=== PATIENT | male | born 1965 | race Caucasian/White ===

== ENCOUNTER → 2021-11-02 | Outpatient (CLI) | payer BC ==
--- NOTE | 2021-11-03 09:24 | XR ---
Left ankle HISTORY: Pain 3 views the left ankle There is spurring at the tibiotalar joint. No evident fracture or dislocation. Ossific densities pres ent distal to the medial malleolus which appears well-corticated and not felt likely to be acute. Sim ilarly, distal to the lateral malleolus well-corticated ossific densities are suspected. Some widenin g of the tibiotalar joint is present bilaterally. Only mild soft tissue swelling present. Questionabl e lucency seen along the ankle mortise laterally on the frontal view. IMPRESSION: Findings may be due to remote trauma with secondary osteoarthritis, difficult to exclude an osteochondral defect at the ankle mortise, ankle MRI may be of benefit.
== END | disposition home or self-care (01) ==
LOC: RADXRYALE 16:39
PROVIDERS: ATTEND Physician Assistant
DX: M25.572 Pain in left ankle and joints of left foot (principal)

== ENCOUNTER 2023-11-25 08:30 | Day surgery (SDC) | payer BC ==
[2023-11-25] MEDS ORDERED: PROPOFOL 10 MG/ML 20 ML VIAL IV ONE (10:24)
[2023-11-25] MEDS ORDERED: LACTATED RINGERS 1,000 ML BAG ONE (10:24)
[2023-11-25] MEDS ORDERED: LIDOCAINE 1% INJ 10MG/ML (20 ML MDV) ONE (10:24)
== END 2023-11-25 12:15 ==
LOC: OR 08:30
PROVIDERS: ATTEND Student in an Organized Health Care Education/Training Program
DX: I48.19 Other persistent atrial fibrillation (principal); R47.1 Dysarthria and anarthria; Z79.82 Long term (current) use of aspirin
CPT/HCPCS: 92960; J2001; J2704

== ENCOUNTER → 2024-01-25 | Outpatient (CLI) | payer BC ==
[2024-01-25 16:37] VITALS: BP 128/88; PULSE 54; RESP 16; TEMP 98.1
--- NOTE | 2024-01-25 17:13 | P.SLEEP ---
History of Present Illness DATE: 01/25/2024 CONSULTATION/NEW PATIENT EVALUATION HISTORY OF PRESENT ILLNESS/SLEEP-WAKE EVALUATION: 58-year-old gentleman had been evaluated in the sleep center for possible obstructive sleep apnea hypopnea syndrome. SLEEP SCHEDULE: Usually sleep schedule from 8 PM to 4 AM on weekdays and from 10 PM to 7 AM on weekend. FALLING ASLEEP: Sometimes patient has difficulties to fall asleep, although no TV in bedroom. DURING SLEEP: Patient usually sleeps on the back and side position with snoring and awakenings from sleep 3 times with nocturia. No history of hypnogogical hallucinations, sleep paralysis, or cataplexy. DURING THE DAY/WAKE STATE: Patient may feel sleepiness during the day. [place] sleepiness scale is borderline 9. Patient takes 2 naps during the day. PAST MEDICAL HISTORY: Atrial fibrillation. PAST SURGICAL HISTORY: None. MEDICATIONS: Eliquis. SOCIAL HISTORY: Please see below. FAMILY HISTORY: Stroke, atrial fibrillation. REVIEW OF SYSTEMS: Multiple awakenings from sleep, snoring, sleepiness during the day. No fevers. No double vision. No recent chest pain. No shortness of breath. No abdominal pain. No bleeding episodes. No blood in urine. No seizure episodes. PHYSICAL EXAMINATION: GENERAL: A pleasant patient without any distress. VITAL SIGNS: Please see below, weight 194 pounds, BMI 25.5. HEENT: PERRLA, EOMI. Evaluation of oropharynx showed tongue protrudes midline, low position of soft palate Mallampati 34. NECK: Supple. No JVD. Thyroid is not palpable. 15.5 inches in circumference. LUNGS: Clear to percussion and to auscultation. Good air exchange. No wheezing or rhonchi. HEART: S1, S2 irregularly irregular. No murmurs, gallops or rubs. ABDOMEN: Soft and nontender. Bowel sounds are present. No organomegaly appreciated. EXTREMITIES: No clubbing or cyanosis. DEVELOPMENTAL SPECIALIST: Awake, alert, and oriented x3. Cranial nerves 2 to 7 intact. There is no fasciculation or atrophy noted. No focal deficits observed. ASSESSMENT: 1. Snoring, multiple awakenings from sleep, low position of soft palate Mallampati 34, sleepiness. Obstructive sleep apnea hypopnea syndrome. 2. Atrial fibrillation. PLAN: 1. Polysomnography for evaluation of patient's breathing during sleep. 2. Following plan after reading sleep study. 3. Preferable position during sleep on the side. 4. No driving if patient feels any sleepiness. Patient is aware of civil and criminal liability for unsafe driving. 5. Sleep hygiene with regular sleep time for at least 7.5-8 hours. 6. Watching weight. Thank you very much for referring this patient for consultation. Sincerely, Edin Hill MD, PhD, FAASM. Diplomat of [place] [employer], Sleep Medicine Board by [place] [employer] [place] [employer] [facility] [place] cc: Greyson Cespedes DO, Krishen, Ajay MD, Marvin Amaya MD Past Medical History Past Medical History: No Reported History, Coronary Artery Disease (CAD) Additional Past Medical History / Comment(s): afib History of Any Multi-Drug Resistant Organisms: None Reported Past Surgical History: Hernia Repair Additional Past Surgical History / Comment(s): Colonoscopy. cardio version Past Anesthesia/Blood Transfusion Reactions: No Reported Reaction Past Psychological History: No Psychological Hx Reported Smoking Status: Former smoker Past Alcohol Use History: Occasional Past Drug Use History: None Reported - Past Family History Mother Family Medical History: Coronary Artery Disease (CAD) Additional Family Medical History / Comment(s): Stroke, TIA Father Family Medical History: Coronary Artery Disease (CAD) Additional Family Medical History / Comment(s): Stroke Brother(s) Family Medical History: Coronary Artery Disease (CAD) Additional Family Medical History / Comment(s): stroke Medications and Allergies Home Medications Medication Instructions Recorded Confirmed Type Multivitamins, Thera [Multivitamin 1 tab PO DAILY 02/07/19 01/25/24 History (formulary)] Apixaban [Eliquis] 5 mg PO BID 01/25/24 01/25/24 History Allergies Allergy/AdvReac Type Severity Reaction Status Date / Time No Known Allergies Allergy Verified 02/12/19 07:42 Physical Exam Vitals: Vital Signs Temp Pulse Resp BP Pulse Ox 01/25/24 16:35 98.1 F 54 L 16 128/88 98 Intake and Output 01/25/24 01/25/24 01/25/24 06:59 14:59 22:59 Other: Weight 87.997 kg Sleep Note - Sleep Data ESS Total: 9 - Sleep Note Sleep Note: Temperature: 98.1 F Pulse Rate: 54 Respiratory Rate: 16 Blood Pressure: 128/88 SpO2: 98 Height: 6 ft 1 in Weight: 87.997 kg BMI: Neck Circumference: 15.5
== END ==
LOC: 3 N SLEEP 16:02
PROVIDERS: ATTEND Internal Medicine
CPT/HCPCS: 99211

== ENCOUNTER 2024-02-15 08:05 | Day surgery (SDC) | payer BC ==
[2024-02-15] MEDS: IV FLUID CONTINUATION 1,000 ML IV ONE (08:27)
[2024-02-15] MEDS: LACTATED RINGERS 1,000 ML IV SCH (08:36)
[2024-02-15 08:38] VITALS: RESP 16; TEMP 98.2
[2024-02-15] MEDS ORDERED: PROPOFOL 10 MG/ML 20 ML VIAL IV ONE (09:30)
--- NOTE | 2024-02-15 09:57 | P.PCN ---
Date of Procedure: 02/15/24 Procedure(s) Performed: BRIEF HISTORY: Patient is a 58-year-old pleasant white meat scheduled for an elective colonoscopy as a part of evaluation by history of colon polyps. Last colonoscopy was 5 years ago and he was noted to have a tubular adenoma. PROCEDURE PERFORMED: Colonoscopy with biopsy. PREOPERATIVE DIAGNOSIS: History of colon polyps. IV sedation per Anesthesia. PROCEDURE: After informed consent was obtained, the patient, was brought into the endoscopy unit. IV sedation was administered by Anesthesia under continuous monitoring. Digital rectal examination was normal. Initially the Olympus CF-160 flexible video colonoscope was then inserted in the rectum, gradually advanced into the descending colon further advancement was not possible. The scope was removed. Colonoscopy centimeters anterior to the rectum and gentle advanced into the cecum without any difficulty. Careful examination was performed as the scope was gradually being withdrawn. Ileocecal valve and the appendiceal orifice were visualized and appeared normal. Prep was excellent. Mucosa of the cecum, ascending colon, transverse colon appeared normal. The descending colon there was a 3 mm polyp that was removed by cold biopsy. Rest of the, descending colon, sigmoid colon, and rectum appeared normal. Retroflexion was performed in the rectum and no lesions were seen. The patient tolerated the procedure well. IMPRESSION: 3 mm descending colon polyp status post cold biopsy This of the colon appeared normal. RECOMMENDATIONS: Findings of this examination were discussed with the patient as well as his family.. Follow-up with the biopsy results and if the biopsy was adenoma he can have repeat colonoscopy in 5 years.
[2024-02-15 10:21] VITALS: BP 113/80; PULSE 49
== END 2024-02-15 10:51 | disposition home or self-care (01) ==
LOC: ORWHC2ENDO 08:05
PROVIDERS: ATTEND Internal Medicine Gastroenterology
DX: Z12.11 Encounter for screening for malignant neoplasm of colon (principal); K63.5 Polyp of colon; I48.91 Unspecified atrial fibrillation; Z79.01 Long term (current) use of anticoagulants; Z86.0101 Personal history of adenomatous and serrated colon polyps; Z86.73 Personal history of transient ischemic attack (TIA), and cerebral infarction without residual deficits
CPT/HCPCS: 88305; 45380; J2704

== ENCOUNTER → 2024-02-21 | Outpatient (CLI) | payer BC ==
--- NOTE | 2024-02-22 10:25 | P.PCN ---
Description of Procedure: CLINICAL: A home sleep apnea test has been done for confirmation of possible obstructive sleep apnea-hypopnea syndrome. DESCRIPTION OF PROCEDURE: RESULTS: Recording time was 8 hours 33 minutes. Evaluation time was 8 hours 21 minutes. Evaluation time is sufficient for making conclusion about results of the test. Raw data of sleep recording has been reviewed and is adequate. Respiratory channel showed 202 apneas and 39 hypopneas. Apnea-hypopnea index was 28.8 per hour, which included obstructive apnea index 0, central apnea index 24.2, mixed apnea index 0. Pulse rate in the range between minimum 40, maximum 82, average 46 by computer calculation. Lowest desaturation was 89%. IMPRESSION: 1. Central sleep apnea hypopnea syndrome with Edilberto-Steele respiration. Please see other impressions from consultation. PLAN: 1. Titration with CPAP, if necessary BiPAP ST mode or ASV for correction of respiratory abnormalities during sleep. 2. Following plan after reading titration sleep study. 3. Sleep hygiene with regular time in bed for at least 8 hours. 4. No driving if feeling any sleepiness. Thank you very much for allowing me to participate in the management of your patient. Sincerely, Edin Hill MD, PhD, FAASM Diplomat of [place] [employer] Sleep Medicine Board of [place] [employer] [facility] [facility] [place] cc: Greyson Cespedes DO, Anubhav, Jain MD
== END ==
LOC: 3 N SLEEP 16:30
PROVIDERS: ATTEND Internal Medicine
DX: G47.33 Obstructive sleep apnea (adult) (pediatric) (principal); G47.31 Primary central sleep apnea; I48.20 Chronic atrial fibrillation, unspecified; Z79.01 Long term (current) use of anticoagulants

== ENCOUNTER 2024-04-06 19:27 | Outpatient (CLI) | payer BC ==
--- NOTE | 2024-04-11 14:55 | P.PCN ---
Description of Procedure: CLINICAL: Titration with positive air pressure has been done for correction of respiratory abnormalities during sleep. DESCRIPTION OF PROCEDURE: The standard montage for clinical polysomnography included the electroencephalogram, the electrocardiogram, the mentalis surface electromyography and Lead II cardiography. The respiratory battery consisted of measurements of nasal /buccal air flow, pressure transducer measurements from the nose, thoracic and /or abdominal effort and intercostal surface electromyography. Video monitoring has been done to check for any parasomnia events. Nocturnal oxyhemoglobin saturations were obtained by finger oximetry. Step-regan titration with positive airway pressure was utilized to control respiratory events. Raw data of sleep recording has been reviewed and is adequate. RESULTS: Sleep efficiency was significantly decreased to 75.0%. Latency to sleep onset was normal 16.0 minutes.]. Sleep architecture showed stage N1 was extremely short 0.6%, Delta sleep was absent 0%, REM sleep was increased to 36.7%. Heart rate was minimum 41 BPM, maximum 52 BPM, average 46 BPM. EMG showed 0 periodic limb movements per hour with 0 micriarousals per hour. PAP titration have been done with CPAP up to the pressure 7 cm H2O, pleasant patient was on BiPAP at the pressure 12/8 and 13 over 9 cm of water. The best results were at the pressure 7 cm H2O. Apnea hypopnea index reduced to 4.2, patient was at that pressure of 400 minutes in non-REM sleep and 71 minutes and REM sleep and arousal index was only 2.4. IMPRESSION: 1. Obstructive sleep apnea hypopnea syndrome mostly on controle with PAP treatment. 2. No significant periodic limb movements have been documented. Please see other impressions from consultation. PLAN: 1. The patient will have treatment with positive air pressure equipment with the level of pressure 5-10 cm H2O and should use it every night for the whole night. 2. Watching weight. 3. Sleep hygiene with regular time in bed for at least 8 hours. 4. No driving if feeling any sleepiness. 5. I will see the patient for follow up visit to explain the results of the tremayne t, recommendations, check compliance with treatment and make any necessary adjustment related to mask fitting, pressure and humidification. 6. Please check iron profile including ferritin level. Low level of iron may increase risk for periodic limb movements Thank you very much for allowing me to participate in the management of your patient. Sincerely, Edin Hill MD, PhD, FAASM Diplomat of [place] [employer] Sleep Medicine Board of [place] [employer] [facility] [place] cc: Greyson Cespedes DO
== END 2024-04-07 06:00 | disposition home or self-care (01) ==
LOC: 3 N SLEEP 19:27
PROVIDERS: ATTEND Internal Medicine
DX: G47.33 Obstructive sleep apnea (adult) (pediatric) (principal); G47.61 Periodic limb movement disorder
CPT/HCPCS: 95811

== ENCOUNTER 2024-04-10 12:51 | Day surgery (SDC) | payer BC ==
[2024-04-06 14:36] VITALS: BMI 25.9
[2024-04-10] MEDS: MIDAZOLAM 2 MG/2 ML VIAL IV ONE (13:55)
[2024-04-10] MEDS: IV FLUID CONTINUATION 1,000 ML IV ONE ×2 (14:00→15:52)
[2024-04-10] MEDS: SODIUM CHLORIDE 0.9% 1,000 ML IV SCH (14:00)
[2024-04-10] MEDS ORDERED: HEPARIN SODIUM,PORCINE 10,000 UNIT/ML 1 ML VIAL ONE (15:51)
[2024-04-10] MEDS ORDERED: PROPOFOL 10 MG/ML 20 ML VIAL IV ONE (15:51)
[2024-04-10] MEDS ORDERED: LIDOCAINE 1% INJ 10MG/ML (20 ML MDV) ONE (15:51)
[2024-04-10] MEDS ORDERED: SUCCINYLCHOLINE CHLORIDE 200 MG/10 ML VIAL IV ONE (15:51)
[2024-04-10] MEDS ORDERED: fentaNYL (PF) 50 MCG/ML 2 ML AMP ONE (15:51)
[2024-04-10] MEDS ORDERED: ePHEDrine 50 MG/ML 1 ML VIAL ONE (15:51)
[2024-04-10] MEDS ORDERED: MIDAZOLAM 2 MG/2 ML VIAL ONE (15:51)
[2024-04-10] MEDS ORDERED: ROCURONIUM 10 MG/ML (5 ML VIAL) IV ONE (15:51)
[2024-04-10] MEDS: HEPARIN SODIUM,PORCINE 10,000 UNIT in SODIUM CHLORIDE 0.9% 1,000 ML IRRIGATION ONE (15:55)
[2024-04-10] MEDS: HEPARIN SODIUM,PORCINE (1 ML) 2,500 UNIT in SODIUM CHLORIDE 0.9% 250 ML IRRIGATION ONE (15:55)
--- NOTE | 2024-04-10 16:11 | P.HPCAR ---
History of Present Illness This is Dr. 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 No fever chills cough expectoration No chest discomfort dizziness or syncope recently No undue shortness of breath especially when lying flat in bed ROS: No fever chills or rigors, no cough, phlegm or expectoration, no nausea, vomiting or diarrhea, no hematuria, dysuria, no musculoskeletal complaints, no strokes or seizures, no skin lesions. EXAMINATION: Pulse rate 50, blood pressure 142/89 mmHg afebrile Breath sounds are clear no rhonchi no crackles No JVD Heart sounds are irregular within normal no murmurs no gallop or rub No lower extremity edema REVIEW OF LABS, ECG & MEDICAL DATA Normal TSH 1.7 Currently on Eliquis 5 mg twice daily No known drug allergies Physical Exam Vitals: Vital Signs Temp Pulse Resp BP Pulse Ox 04/10/24 14:32 97.9 F 44 L 14 142/89 99 Intake and Output 04/10/24 04/10/24 04/10/24 06:59 14:59 22:59 Intake Total 0 Balance 0 Intake: IV 0 Other: Weight 88.3 kg Past Medical History Past Medical History: Coronary Artery Disease (CAD) Additional Past Medical History / Comment(s): afib, SOB, See Dr. Bragg's History of Any Multi-Drug Resistant Organisms: None Reported Past Surgical History: Hernia Repair Additional Past Surgical History / Comment(s): Colonoscopy. cardio version Past Anesthesia/Blood Transfusion Reactions: No Reported Reaction Smoking Status: Former smoker - Past Family History Mother Family Medical History: No Reported History Additional Family Medical History / Comment(s): Stroke, TIA Father Family Medical History: Coronary Artery Disease (CAD) Additional Family Medical History / Comment(s): Stroke Brother(s) Family Medical History: Coronary Artery Disease (CAD) Additional Family Medical History / Comment(s): stroke Physical Examination Vital Signs Temp Pulse Resp BP Pulse Ox 04/10/24 14:32 97.9 F 44 L 14 142/89 99 Intake and Output 04/10/24 04/10/24 04/10/24 06:59 14:59 22:59 Intake Total 0 Balance 0 Intake: IV 0 Other: Weight 88.3 kg Results Current Medications Generic Name Dose Route Start Last Admin Trade Name Adilene PRN Reason Stop Dose Admin Sodium Chloride 1,000 mls @ 50 mls/hr 04/10/24 07:24 04/10/24 14:00 Saline 0.9% IV 05/10/24 07:23 50 mls/hr .Q20H KANG Administration Lactated Ringer's 1,000 mls @ 20 mls/hr 04/10/24 07:24 Lactated Ringers IV 05/10/24 07:23 .Q24H KANG Intake and Output 04/10/24 04/10/24 04/10/24 06:59 14:59 22:59 Intake Total 0 Balance 0 Intake: IV 0 Other: Weight 88.3 kg Patient Weight 04/11/24 06:59 Weight 88.3 kg
[2024-04-10] MEDS: HEPARIN SOD,PORK IN 0.45% NACL 25,000 UNIT in 0.45% NACL 1 250ML.BAG IV ONE (16:24)
[2024-04-10] MEDS: LIDOCAINE 1% INJ 10MG/ML (20 ML MDV) SQ ONE (16:29)
[2024-04-10] MEDS: IOPAMIDOL-370 100ML BTL INJ ONE (18:24)
[2024-04-10] MEDS ORDERED: ACETAMINOPHEN TAB 325 MG TAB PO PRN (18:45)
--- NOTE | 2024-04-10 18:50 | P.EPPROC ---
- EP Procedure Note Electrophysiology Procedure Note: PROCEDURE A. fib ablation with pulmonary vein isolation, left atrial septal ablation and left atrial roof ablation DIAGNOSIS Longstanding persistent atrial fibrillation, symptomatic, refractory to therapy with associated cardiomyopathy RESULT No left atrial appendage mass seen on intracardiac echo, large left atrial appendage Successful A. fib ablation/pulmonary vein isolation of all veins using cryo- ablation Complete entrance block in all 4 veins confirmed Left atrial septal ablation Left atrial roof ablation No evidence for phrenic nerve injury Esophageal deflection YES, left-sided Electrical cardioversion with a synchronized shock across the chest YES PROCEDURE DETAILS Written informed consent prior to procedure. Patient brought to the EP lab. General anesthesia given. Heparin administered. A city maintained above 300 seconds Both groins prepped and draped per protocol and venous sheaths placed. Esophagus intubated, circa catheter for temperature monitoring an endoscope for possible esophageal deflection. Phrenic nerve monitoring performed. Esophageal temperature monitoring performed. Esophageal deflection performed if circa catheter overlapping with the balloon or circa temperature less than 27.5C Intracardiac echocardiography performed. Pericardium evaluated. Left atrial appendage evaluated. Left atrium evaluated along with pulmonary veins Transseptal catheterization performed under fluoroscopic guidance and intracardiac echo guidance Cryoablation sheath exchanged, balloon catheter along with achieve catheter placed in the left atrium. Pulmonary veins isolated in the following sequence: Left superior pulmonary vein followed by left inferior pulmonary vein, followed by right inferior pulmonary vein and lastly right superior pulmonary vein. Phrenic nerve stimulation along with capture thresholds within the SVC and right superior pulmonary vein to identify the phrenic nerve proximity to the cryo- balloon. Pulmonary veins isolated and confirmed with entrance and exit block. Phrenic nerve integrity confirmed at the end of the procedure Ablation of the left atrial roof performed with sequential lesions from the left superior to the right superior pulmonary veins. Ablation of the electrograms confirmed Ablation of the left atrial septum performed with cannulation of the superior branch of the right inferior and the inferior branch of the right superior vein to achieve ablation of the posterior septum of the left atrium. Ablation of electrograms confirmed Electrical cardioversion performed for persistence of atrial fibrillation despite successful ablation of the pulmonary veins, left atrial roof and left atrial septum Diagnostic catheters for the high right atrium, His bundle, coronary sinus placed. LA and RA pressures recorded LA pressure: Diagnostic EP study with coronary sinus pacing and recording post cardioversion Baseline measurements: SC interval 176 ms, QRS 104 ms and QT interval 425 ms AH interval 120 ms and HV interval 59 ms Venous sheaths were removed and hemostasis assured with a closure device. Patient extubated and transferred to recovery PROCEDURES PERFORMED Diagnostic EP study CS pacing and recording Left and right transseptal catheterization Catheter the mapping of the tachycardia Intracardiac echocardiography Pulmonary vein isolation with transseptal and comprehensive EPS, [id number] Left atrial roof line, +[id number] Linear ablation, left atrium, +[id number] Electrical cardioversion with a synchronized shock across the chest [id number]
[2024-04-10] MEDS: ACETAMINOPHEN IV (For NPO) 1,000 MG in EMPTY BAG 1 BAG IVPB ONE (20:28)
[2024-04-10] MEDS: APIXABAN 5 MG TAB PO SCH (20:30)
[2024-04-10] MEDS: LACTATED RINGERS 1,000 ML IV SCH (20:40)
[2024-04-11 07:49] VITALS: BP 127/86; PULSE 70; RESP 15; TEMP 98.9
--- NOTE | 2024-04-12 12:25 | P.DS ---
Providers Attending physician: Manuel Bragg Primary care physician: [facility] Course: Patient is doing well. No chest discomfort dizziness or lightheadedness He has a mild sore throat Yesterday he underwent an A-fib ablation. His groins have healed well no hematoma no swelling Heart sounds are normal Breath sounds are clear blood pressures in the normal range Impression Longstanding persistent atrial fibrillation Status post A-fib ablation with PVI, left atrial septal ablation and left atrial roof ablation Suggest Continue cardiac medications and continue anticoagulation uninterrupted Follow-up in 1 week Plan - Discharge Summary Discharge Rx Participant: Yes New Discharge Prescriptions: No Action Multivitamins, Thera [Multivitamin (formulary)] 1 tab PO DAILY Apixaban [Eliquis] 5 mg PO BID Discharge Medication List Multivitamins, Thera [Multivitamin (formulary)] 1 tab PO DAILY 02/07/19 [History] Apixaban [Eliquis] 5 mg PO BID 01/25/24 [History] Follow up Appointment(s)/Referral(s): Chris Amaya MD [Medical Doctor] - 04/26/24 2:45 pm Patient Instructions/Handouts: Cardiac Ablation (DC), Electrophysiology Study (DC) Activity/Diet/Wound Care/Special Instructions: Post EP study - Ablation instructions 1. Keep access sites dry for 2 days. 2. No heavy lifting or straining for 2 days. 3. Avoid bending the hips repeatedly for 2 days. 4. You may go up and down stairs slowly 5. If you have had an ablation for atrial fibrillation or atrial flutter and are on a blood thinner, do not stop the blood thinner even temporarily for 3 months post ablation Call if the following is noted 1. Bleeding, increasing swelling or pain at the access sites. 2. Increasing chest discomfort, especially upon taking a deep breath. 3. Increasing shortness of breath, at rest or with exertion. 4. Undue cough / phlegm 5. Difficulty or pain while swallowing. 6. Pain or change in color in the extremities. 7. Fever, chills, rigors. 8. Increasing headache or neurologic symptoms. 9. Dizziness, fainting, palpitations For patients who have undergone an A-fib ablation /atrial flutter ablation Strict instruction; do NOT stop anticoagulation (Eliquis/Xarelto/Pradaxa) for the next 2 months temporarily, for any elective, nonurgent surgery. This increases the risk of stroke, post A-fib ablation Discharge Disposition: HOME SELF-CARE
== END 2024-04-11 10:11 | disposition home or self-care (01) ==
LOC: CATHEP 12:51 → 6NMEDSUR 18:27 → CATHEP 04-11 10:11
PROVIDERS: ATTEND Internal Medicine Clinical Cardiac Electrophysiology
DX: I48.11 Longstanding persistent atrial fibrillation (principal); I25.10 Atherosclerotic heart disease of native coronary artery without angina pectoris; I42.9 Cardiomyopathy, unspecified; Z87.891 Personal history of nicotine dependence; Z79.899 Other long term (current) drug therapy
CPT/HCPCS: 92960; 93656; 93657; 86900; 86901; 84443; 86850; C1894; C1769; C1760 ×3; C1730 ×2; C1759; C1733; C1766; J2250; J1644 ×3; J2003; J0131; Q9967

== ENCOUNTER → 2024-06-06 | Outpatient (CLI) | payer BC ==
[2024-06-06 15:50] VITALS: BP 128/84; PULSE 72; RESP 12; TEMP 98.2
--- NOTE | 2024-06-06 16:21 | P.PROGSL ---
Subjective DATE: 06/06/2024 FOLLOW UP VISIT. Patient with central and obstructive sleep apnea hypopnea syndrome return to sleep center for follow-up visit. Recently patient had sleep study which documented obstructive sleep apnea hypopnea syndrome. Patient was initiated on PAP therapy and today is first visit after treatment was started. I explained to the patient results of sleep studies in details. Patient was able to use PAP equipment every night for the whole night. The patient does not have significant problems with the mask, PAP pressure and h umidification. [place] sleepiness scale is 5, which is normal. I checked information from PAP unit. PAP unit pressure 5-10, average 7.2 cm H2O. Usage is 100% for more then 4 hours, average 6 hours per night. Leak is 27.8 l/m, which is in acceptable range. Apnea Hypopnea Index is 2.6, which is normal. MEDICATIONS: Please see below During physical exam: GENERAL: A pleasant patient without any distress. VITAL SIGNS: Please see below weight 195.4 pounds. HEENT: PERRLA, EOMI.low position of soft palate, Mallapati 34. NECK: Supple. No JVD. LUNGS: Clear to percussion and to auscultation. Good air exchange. No wheezing or rhonchi. HEART: S1, S2 regular. ABDOMEN: Soft and nontender.[] EXTREMITIES: No clubbing or cyanosis. SPEECH AND LANGUAGE SPECIALIST: Awake, alert, and oriented x3. No focal deficit. Impressions: 1. Central and obstructive sleep apnea-hypopnea syndrome. Patient demonstrated great compliance with treatment, benefiting from treatment. 2. History of atrial fibrillation. I explained to the patient how to adjust heated humidity and temperature in the heated tube. Plan: 1. Continue using PAP equipment every night for the whole night. 2. To change air filter at least 1-2 times per month. 3. PAP unit should stay lower then position of the head. 4. Advised patient to remove all remaining water from humidifier canister daily and make it dry after each usage. Refill canister with fresh distilled water before each usage. 5. Sleep hygiene with regular time in bed for at least 8 hours. 6. Precautions related to driving. No driving if feel any sleepiness. 7. I will maintain prescription for PAP supplies including mask, tube, filters. 8. Follow up visit in 8 months or earlier if patient has any problems. 9. Watching weight. Thank you very much for allowing me to participate in the management of your patient. Edin Hill MD, PhD, FAASM. Diplomat of [place] [employer], Sleep Medicine Board by [place] [employer] Director [employer] [facility] [place] Objective - Vital Signs Vital Signs: Vital Signs Temp 98.2 F 06/06/24 15:49 Pulse 72 06/06/24 15:49 Resp 12 06/06/24 15:49 BP 128/84 06/06/24 15:49 Pulse Ox 97 06/06/24 15:49 FiO2 Intake & Output 06/05/24 06/06/24 06/06/24 18:59 06:59 18:59 Weight 88.451 kg Home Medications: Home Medications Medication Instructions Recorded Confirmed Type Multivitamins, Thera [Multivitamin 1 tab PO DAILY 02/07/19 04/10/24 History (formulary)] Apixaban [Eliquis] 5 mg PO BID 01/25/24 04/10/24 History
== END ==
LOC: 3 N SLEEP 15:27
PROVIDERS: ATTEND Internal Medicine
DX: G47.33 Obstructive sleep apnea (adult) (pediatric) (principal); G47.31 Primary central sleep apnea; Z86.79 Personal history of other diseases of the circulatory system
CPT/HCPCS: 99212